=== PATIENT | female | born 1965 | race Caucasian/White ===

== ENCOUNTER 2020-08-01 02:02 | Outpatient (CLI) | payer MEDICAID, SELFPAY ==
[2020-08-02 15:18] LABS: COVID-19 RT-PCR UVMMC Result Negative (Negative)
== END 2020-08-01 02:03 | disposition home or self-care (01) ==
LOC: LBO 02:02
PROVIDERS: PCP Internal Medicine; Visit Provider Surgery
DX: Z20.822 Contact with and (suspected) exposure to COVID-19 (principal); Z01.818 Encounter for other preprocedural examination
CPT/HCPCS: U0003

== ENCOUNTER 2020-08-04 10:04 | Day surgery (SDC) | payer MEDICAID, SELFPAY ==
--- NOTE | 2020-08-04 08:11 | W.COLOREPORT ---
Date of service: 08/04/20 Time of Service: 08:11 Colonoscopy Report Date of procedure: 08/04/20 Pre-op diagnosis general: crc screen Post-op diagnosis procedure note: other (normal ) Prep: Miralax/Dulcolax Retraction Time: 10 mins Procedure Description: After informed consent was obtained the patient was taken to the procedure room and placed in a left decubitous position. Monitors were applied and a time out was done. The patients name, date of , procedure, allergies to medications and metal in their body was reviewed. The patient was then sedated. Once sedated and comfortable a rectal exam was done. External exam: small hemorrhoidal tags . Internal exam revealed a normal sphincter tone and no palpable masses. The scope was then introduced and retrofelexed. Few small hypertrophied papilla, no internal hemorrhoids were identified. The scope was then advanced to the cecum without difficulty. The TI and appendiceal orifice were identified. The prep was good. The scope was then slowly retracted over 10 minutes back into the rectum. There are no polyps, AVMs, or diverticula visualized today. Mucosa appears pink and healthy. She does have a somewhat redundant colon with poor tone. The scope was removed and the patient was woken up and taken back to Same day surgery in stable condition. The patient tolerated the procedure well and there were no immediate complications. -EGD and colonoscopy were essentially normal exams. They do not explain the patient's degree of anemia. Follow up: The patient should follow up in 10 years unless they develop changes in bowel habits or other new gastrointestinal complaints.
--- NOTE | 2020-08-04 08:12 | PDOC.DSDIS_ITS ---
Discharge Plan Disposition Patient Disposition: HOME Condition: Good Discharge Details Reason For Visit: stomach/colon scope Attending Provider: Alondra Stockton Primary Care Provider: Chasity Clark Home Meds and New Rx's Prescriptions: New pantoprazole [Protonix] 40 mg tablet,delayed release (DR/EC) 40 mg PO DAILY Qty: 90 RF: 4 Continued atenolol 50 mg tablet 75 mg PO DAILY RF: 0 losartan 50 mg tablet 50 mg PO DAILY RF: 0 atorvastatin 40 mg tablet 40 mg PO DAILY RF: 0 metformin 500 mg tablet 500 mg PO BID RF: 0 gemfibrozil [Lopid] 600 mg tablet 600 mg PO BID RF: 0 pregabalin [Lyrica] 200 mg capsule 200 mg PO BID RF: 0 zolpidem [Ambien] 10 mg tablet 10 mg PO QHS PRNRF: 0 ropinirole [Requip] 5 mg tablet 5 mg PO QHS RF: 0 Mirena 20 mcg/24 hours (6 yrs) 52 mg intrauterine device 1 device intrauterine ONCE RF: 0 Discontinued omeprazole 40 mg capsule,delayed release(DR/EC) 40 mg PO DAILY RF: 0 aspirin 325 mg tablet 325 mg PO DAILY RF: 0 polyethylene glycol 3350 17 gram/dose powder 238 g PO ONCE Qty: 238 RF: 0 bisacodyl [Dulcolax (bisacodyl)] 5 mg tablet,delayed release (DR/EC) 5 mg PO ONCE Qty: 4 RF: 0 Discharge Instructions Additional Instructions: Findings:EGD: very small hiatal hernia. CE- normal *Does not explain pt degree of anemia. recommend: Pill Cam at [facility] [place] to eval small bowel for ectasia. Consider BMB &/or work-up for thalasemia. -stop ASA/NSAID's. ok to use tylenol -Avoid alcohol or tobacco products -Change PPI to protonix. Rx placed. Continue with lifestyle modifications: no alcohol, tobacco products, Aspirin or NSAID's (ibuprofen, Motrin, Naprosyn, aleve, etc). Try to limit: soda pop/any carbonated beverages, caffeine (including tea & chocolate), and acidic foods, (tomatoes, citrus, onions, peppermints) spicy foods. Do not lie down for 30 minutes after eating, and do not eat 2 hours prior to bedtime. Avoid wearing tight fitting clothing/ belts Follow up: Dr. Clark in 2-3wks Please call if you develop: fevers >101.5 Nausea or Vomiting Abdominal pain that is not transient DAY SURGERY UNIT POST COLONOSCOPY INSTRUCTIONS 1. Because there will be medication in your system for the next 24 hours, you may feel a little sleepy. Your coordination will be affected. Therefore: a. Do not drive or operate dangerous equipment for 24 hours. b. Do not drink alcohol beverages for 24 hours (not even beer). c. Plan to go home and rest for the day. 2. Generally there are no restrictions on your activity after a day or so has gone by, but you may feel a bit fatigued for a few days. 3 After you arrive home you may have a light meal and return to a normal diet as you can tolerate it without feeling sick to your stomach. 4. After surgery, you may feel pain or discomfort. This should be only transient, but if it persists please contact your doctor. 5. If there are any questions regarding the findings of your procedure, please feel free to contact your doctor. 6. If you are unable to contact your doctor with a problem, contact the hospital at [phone]. 7. Continue all your regular medications unless directed otherwise. I understand the above instructions and have no questions. Signature of Patient or Responsible Adult Escort Date/Time Name of Responsible Adult Escort Signature of Nurse Date/Time Activity:: no lifting over 20#'s or strenuous activity x 24 hrs Diet:: small light meals x 24 hrs Discharge Orders Discharge Orders: Discharge Order (Routine); Ordered 08/04/20 Ordered By: Alondra Stockton DS: Diagnosis Discharge Diagnosis (1) Low plasma total homocysteine: Status: Acute (2) High serum haptoglobin: Status: Acute (3) Chronic iron deficiency anemia: Status: Acute (4) Diabetes: Status: Acute (5) Hyperlipidemia: Status: Acute (6) Hypertension: Status: Inactive (7) Low hemoglobin and low hematocrit: Status: Inactive (8) Necrobiosis lipoidica: Status: Acute (9) Smoker: Status: Acute (10) Homocysteine level above reference range: Status: Acute (11) Adult BMI 31.0-31.9 kg/sq m: Status: Acute
[2020-08-04 10:14] VITALS: BP 135/78; PULSE 68; RESP 16; TEMP 36.6; O2SAT 100
[2020-08-04 10:40] LABS: Abs Immature Grans 0.08 10^3/uL (0.0-0.06); Absolute Basophil Count 0.06 10^3/uL (0.0-0.2); Absolute Eosinophil Count 0.42 10^3/uL (0.0-0.7); Absolute Lymphocyte Count 1.24 10^3/uL (1.2-3.4); Absolute Monocyte Count 0.46 10^3/uL (0.1-0.8); Absolute Neutrophil Count 5.62 10^3/uL (1.2-6.7); Basophils % 0.8; Eosinophils % 5.3; HCT 33.1 % (36.0-46.0); HGB 10.6 g/dL (11.2-15.7); Lymphocytes % 15.7; MCH 26.9 pg (27.0-33.0); Monocytes % 5.8; Neutrophils % 71.4; Nucleated RBC 0 %; RBC 3.94 10^6/uL (3.93-5.22); RDW 24.5 % (11.7-14.6); RDW-SD 73.8 fL; WBC 7.88 10^3/uL (4.4-10.8)
[2020-08-04] MEDS: Lactated Ringers 1,000 ML 100 ML IV (10:49)
[2020-08-04 10:52] LABS: Prothrombin Time 10.2 sec (9.3-11.0)
[2020-08-04 10:56] LABS: Iron 66 ug/dL (50-170); Total Iron Binding Capacity 455 ug/dL (250-450); Transferrin Sat 15 % (15-50)
[2020-08-04 11:08] LABS: Anisocytosis 2+; Diff Comment Diff Reviewed; Hypochromasia 1+; Polychromasia Present
[2020-08-04 11:09] LABS: Poikilocytes 1+
--- NOTE | 2020-08-04 11:10 | STOM_PTH ---
PATIENT: Brooks Castorena LOC: [facility] U#:[id number] AGE/SX: 54/F ROOM: RE08/04/[address]: Alondra Stockton : 1965 BED: DIS: 08/04/2020 SPEC #: [id number] RECD: 08/04/20 12:50 STATUS: KWESI RE #: [id number] NORMA: 08/04/20 11:[address]: Alondra Stockton DEPT: Surgical Specimen RECD BY: Nora Aguilar ENTERED: 08/04/20 12:51 SP TYPE: STOMACH OTHR DR: Chasity Clark Tissues: 1 - BIOPSY BOWEL 2 - STOMACH BIOPSY 3 - STOMACH BIOPSY 4 - ESOPHAGUS BIOPSY 5 - ESOPHAGUS BIOPSY Procedures: GROSS AND MICRO LEVEL 4 Comments: [id number]
[2020-08-04 11:14] LABS: ALT 26 U/L (14-59); AST 19 U/L (15-37); Albumin 4.6 g/dL (3.4-5.0); Alkaline Phosphatase 83 U/L (46-116); Anion Gap 8.6 mmol/L (3-11); BUN 8 mg/dL (7-18); Bilirubin, Total 0.3 mg/dL (0.2-1.0); CO2 24.4 mmol/L (21.0-32.0); CREATININE 0.8 mg/dL (0.55-1.02); Calcium 9.4 mg/dL (8.5-10.1); Chloride 95 mmol/L (98-107); Folate 19.1 ng/mL (8.6-20.0); Glucose 148 mg/dL (74-106); Potassium 4.4 mmol/L (3.5-5.1); Sodium 128 mmol/L (136-145); Total Protein 7.7 g/dL (6.4-8.2); Vitamin B12 267 pg/mL (193-986)
[2020-08-04 11:15] LABS: Platelet Count 324 10^3/uL (130-400)
[2020-08-04 11:56] VITALS: BP 138/71; PULSE 71; RESP 16; TEMP 36.4; O2SAT 100
--- NOTE | 2020-08-04 12:08 | W.PM.ENDDOP ---
Date of service: 08/04/20 Time of Service: 12:08 Endoscopy Report DATE OF PROCEDURE: 08/04/20 PRE-OP DIAGNOSIS: refractory/recurring iron defn anemia/gerd s/s. POST-OP DIAGNOSIS: other (mild gatropathy/very small hiatal hernia ) PROCEDURE: egd w/ bx SURGEON: Alondra Stockton ANESTHESIA: GETA ESTIMATED BLOOD LOSS: 1 PATHOLOGY: other COMPLICATIONS: None DISPOSITION: same day PROCEDURE DESCRIPTION: After informed consent was obtained the patient was take to the procedure room and placed in a supine position. Monitors were applied and a time out was done. The patients name, date of , procedure type, allergies to medications and metal in their body was reviewed. A bite block was placed and the patient was sedated. Once sedated and comfortable the gastroscope was advanced through the oropharynx which was grossly normal into the esophagus. The proximal and mid-esophagus were nl. In the distal esophagus there was mild irregularity noted. There are no esophageal erosions varices or diverticula or strictures apparent. There is definitely some irregularity of the Z-line. Biopsies were taken to rule out Saavedra's. The scope was advanced into the stomach and through the pylorus into the 3rd portion of the duodenum. The duodenum was noted to be nl . Biopsies were done. All specimens are retrieved and no bleeding is noted. The scope was retracted back into the stomach and biopsies were done to rule out H. pylori. There were no ulcers or gastritis.. There is some mild irregularity to the mucosa of the dependent portion of the stomach, and there could be some gastropathy here. But again there is no erythema or edema. The scope was retroflexed. The cardia and fundus were noted to be normal. There very small a hiatal hernia noted. The scope was retracted back into the esophagus and biopsies were done of the GE junction to rule out Saavedra's. The GE junction was at 40 cm-at the lips. The scope was removed and the patient was woken up and taken back to [facility] in stable condition. Follow up: We will send a letter in 3 to 4 weeks with the results of the biopsies.
== END 2020-08-04 12:25 | disposition home or self-care (01) ==
PROVIDERS: PCP Internal Medicine; Visit Provider Surgery
PROC: (CPT 43239; principal; 2020-08-04 10:30)
DX: D50.9 Iron deficiency anemia, unspecified (principal); K21.9 Gastro-esophageal reflux disease without esophagitis; K31.89 Other diseases of stomach and duodenum; K44.9 Diaphragmatic hernia without obstruction or gangrene
CPT/HCPCS: 43239; 36415; 80053; 81025; 88305; 82607; 82746; 83540; 83550; 85025; 85610; J2001

== ENCOUNTER 2024-11-02 03:48 | Outpatient (CLI) | payer BC, SELFPAY ==
[2024-11-02 08:19] LABS: Abs Immature Grans 0.04 10^3/uL (0.0-0.06); Absolute Basophil Count 0.04 10^3/uL (0.0-0.2); Absolute Eosinophil Count 0.25 10^3/uL (0.0-0.7); Absolute Lymphocyte Count 0.95 10^3/uL (1.2-3.4); Absolute Monocyte Count 0.43 10^3/uL (0.1-0.8); Absolute Neutrophil Count 3.61 10^3/uL (1.2-6.7); Basophils % 0.8 %; Eosinophils % 4.7 %; HCT 29.5 % (36.0-46.0); HGB 8.9 g/dL (11.2-15.7); Immature Grans % 0.8 %; Lymphocytes % 17.9 %; MCH 23.5 pg (27.0-33.0); MCHC 30.2 % (32.0-36.0); MCV 78 fL (80-95); MPV 9.2 fL (8.0-11.0); Monocytes % 8.1 %; Neutrophils % 67.7 %; Platelet Count 404 10^3/uL (130-400); RBC 3.78 10^6/uL (3.93-5.22); RDW 20.4 % (11.7-14.6); RDW-SD 57.4 fL; WBC 5.32 10^3/uL (4.4-10.8)
[2024-11-02 08:31] LABS: Anisocytosis 2+; Diff Comment Diff Reviewed
[2024-11-02 08:32] LABS: Hypochromasia 2+; Poikilocytes 2+
[2024-11-02 08:51] LABS: ALT 13 U/L (14-59); AST 13 U/L (15-37); Albumin 3.3 g/dL (3.4-5.0); Alkaline Phosphatase 90 U/L (46-116); BUN 17 mg/dL (7-18); Bilirubin, Total 0.2 mg/dL (0.2-1.0); CREATININE 0.6 mg/dL (0.55-1.02); Chloride 105 mmol/L (98-107); Estimated GFR 104.63 (mL/min/1.73m2); FREE T4 1.06 ng/dL (0.76-1.46); Glucose 157 mg/dL (74-106); Magnesium 1.3 mg/dL (1.8-2.4); Potassium 4.7 mmol/L (3.5-5.1); Sodium 136 mmol/L (136-145); TSH 2.03 uIU/mL (0.36-3.74); Total Protein 6.3 g/dL (6.4-8.2)
== END 2024-11-02 03:49 | disposition home or self-care (01) ==
PROVIDERS: PCP Nurse Practitioner Family; Visit Provider Internal Medicine Medical Oncology
DX: C34.11 Malignant neoplasm of upper lobe, right bronchus or lung (principal); C78.7 Secondary malignant neoplasm of liver and intrahepatic bile duct; D64.9 Anemia, unspecified
CPT/HCPCS: 36415; 80053; 86850; 86900; 86901; 83735; 84439; 84443; 85025

== ENCOUNTER 2024-11-16 01:58 | Outpatient (RCR) | payer BC, SELFPAY ==
[2024-11-09 09:00] LABS: Abs Immature Grans 0.02 10^3/uL (0.0-0.06); Absolute Basophil Count 0.04 10^3/uL (0.0-0.2); Absolute Eosinophil Count 0.08 10^3/uL (0.0-0.7); Absolute Monocyte Count 0.05 10^3/uL (0.1-0.8); Absolute Neutrophil Count 1.37 10^3/uL (1.2-6.7); Basophils % 1.9 %; Eosinophils % 3.9 %; HCT 27.3 % (36.0-46.0); HGB 8.2 g/dL (11.2-15.7); Lymphocytes % 24.3 %; MCH 23.4 pg (27.0-33.0); MCV 78 fL (80-95); MPV 10.1 fL (8.0-11.0); Monocytes % 2.4 %; Neutrophils % 66.5 %; RDW 19.8 % (11.7-14.6); RDW-SD 56.1 fL; WBC 2.06 10^3/uL (4.4-10.8)
[2024-11-09 09:41] LABS: Platelet Count 190 10^3/uL (130-400)
[2024-11-09 09:42] LABS: Diff Comment Agrees w/ Instrument; Hypochromasia 2+; Poikilocytes 2+; Polychromasia Present
[2024-11-09 10:01] LABS: Ferritin 107 ng/mL (8-252)
[2024-11-09 10:39] LABS: ALT 15 U/L (14-59); AST 13 U/L (15-37); Alkaline Phosphatase 83 U/L (46-116); Anion Gap 12.5 mmol/L (3-11); BUN 7 mg/dL (7-18); Bilirubin, Total 0.2 mg/dL (0.2-1.0); CO2 22.5 mmol/L (21.0-32.0); CREATININE 0.5 mg/dL (0.55-1.02); Calcium 8.9 mg/dL (8.5-10.1); Chloride 105 mmol/L (98-107); Estimated GFR 109.33 (mL/min/1.73m2); Glucose 190 mg/dL (74-106); Potassium 4.9 mmol/L (3.5-5.1); Sodium 140 mmol/L (136-145)
[2024-11-16 09:36] LABS: Absolute Basophil Count 0.02 10^3/uL (0.0-0.2); Absolute Eosinophil Count 0.09 10^3/uL (0.0-0.7); Absolute Lymphocyte Count 0.59 10^3/uL (1.2-3.4); Absolute Monocyte Count 0.12 10^3/uL (0.1-0.8); Basophils % 1.6 %; Eosinophils % 7.1 %; HCT 30.7 % (36.0-46.0); HGB 9.2 g/dL (11.2-15.7); Lymphocytes % 46.5 %; MCH 23.7 pg (27.0-33.0); MCV 79 fL (80-95); MPV 10.5 fL (8.0-11.0); Monocytes % 9.4 %; Neutrophils % 35.4 %; RBC 3.88 10^6/uL (3.93-5.22); RDW 21.9 % (11.7-14.6)
[2024-11-16] MEDS: Normal Saline Flush 5 ML SYR IVP (09:50)
[2024-11-16 10:46] LABS: Platelet Count 188 10^3/uL (130-400); WBC 1.27 10^3/uL (4.4-10.8)
[2024-11-16 10:47] LABS: Absolute Neutrophil Count 0.45 10^3/uL (1.2-6.7); Anisocytosis 2+; Diff Comment Agrees w/ Instrument
[2024-11-16 10:48] LABS: Poikilocytes 2+
[2024-11-16 12:39] LABS: ALT 18 U/L (14-59); AST 12 U/L (15-37); Albumin 3.5 g/dL (3.4-5.0); Alkaline Phosphatase 92 U/L (46-116); Anion Gap 11.3 mmol/L (3-11); BUN 12 mg/dL (7-18); Bilirubin, Total 0.2 mg/dL (0.2-1.0); CO2 22.7 mmol/L (21.0-32.0); CREATININE 0.5 mg/dL (0.55-1.02); Calcium 9.1 mg/dL (8.5-10.1); Chloride 106 mmol/L (98-107); Estimated GFR 109.33 (mL/min/1.73m2); Glucose 167 mg/dL (74-106); Magnesium 1.1 mg/dL (1.8-2.4); Potassium 4.3 mmol/L (3.5-5.1); Sodium 140 mmol/L (136-145); Total Protein 6.6 g/dL (6.4-8.2)
[2024-11-17 15:33] LABS: Ferritin 51 ng/mL (8-252)
== END 2024-11-20 23:59 | disposition home or self-care (01) ==
LOC: INF 01:58
PROVIDERS: Nurse Practitioner Family; PCP Nurse Practitioner Family; Visit Provider Internal Medicine Medical Oncology
DX: C34.11 Malignant neoplasm of upper lobe, right bronchus or lung (principal); C78.7 Secondary malignant neoplasm of liver and intrahepatic bile duct; D64.9 Anemia, unspecified
CPT/HCPCS: 36415; 80053; 86850; 86900; 86901; 82728; 83735; 85025

== ENCOUNTER 2024-12-13 02:50 | Outpatient (RCR) | payer BC, SELFPAY ==
[2024-11-23] MEDS: Normal Saline Flush 10 ML SYR IVP (08:39)
[2024-11-23 08:40] LABS: Abs Immature Grans 0.04 10^3/uL (0.0-0.06); Absolute Basophil Count 0.04 10^3/uL (0.0-0.2); Absolute Lymphocyte Count 1.04 10^3/uL (1.2-3.4); Absolute Monocyte Count 0.66 10^3/uL (0.1-0.8); Absolute Neutrophil Count 1.34 10^3/uL (1.2-6.7); Basophils % 1.2 %; Eosinophils % 3.1 %; HCT 32.9 % (36.0-46.0); HGB 9.7 g/dL (11.2-15.7); Immature Grans % 1.2 %; Lymphocytes % 32.3 %; MCH 23.5 pg (27.0-33.0); MCHC 29.5 % (32.0-36.0); MCV 80 fL (80-95); MPV 10.2 fL (8.0-11.0); Monocytes % 20.5 %; Neutrophils % 41.7 %; Platelet Count 541 10^3/uL (130-400); RBC 4.12 10^6/uL (3.93-5.22); RDW 22.6 % (11.7-14.6); RDW-SD 62.5 fL; WBC 3.22 10^3/uL (4.4-10.8)
[2024-11-23 09:09] LABS: Anisocytosis 2+; Diff Comment RBC Morph Reviewed; Poikilocytes 2+
[2024-11-23 09:10] LABS: ALT 15 U/L (14-59); AST 12 U/L (15-37); Albumin 3.5 g/dL (3.4-5.0); Alkaline Phosphatase 110 U/L (46-116); BUN 17 mg/dL (7-18); Bilirubin, Total 0.2 mg/dL (0.2-1.0); CREATININE 0.5 mg/dL (0.55-1.02); Calcium 9.2 mg/dL (8.5-10.1); Chloride 105 mmol/L (98-107); Estimated GFR 109.33 (mL/min/1.73m2); FREE T4 0.97 ng/dL (0.76-1.46); Glucose 151 mg/dL (74-106); Magnesium 1.5 mg/dL (1.8-2.4); Potassium 4.8 mmol/L (3.5-5.1); Sodium 140 mmol/L (136-145); TSH 2.98 uIU/mL (0.36-3.74); Total Protein 6.7 g/dL (6.4-8.2)
[2024-12-07 08:32] LABS: HCT 28.2 % (36.0-46.0); HGB 8.5 g/dL (11.2-15.7); MCH 23.9 pg (27.0-33.0); MCHC 30.1 % (32.0-36.0); MCV 79 fL (80-95); MPV 11.3 fL (8.0-11.0); RBC 3.55 10^6/uL (3.93-5.22); RDW 21.9 % (11.7-14.6); RDW-SD 59.4 fL
[2024-12-07 09:57] LABS: Absolute Lymphocyte Count 0.88 10^3/uL (1.2-3.4); Absolute Monocyte Count 0.07 10^3/uL (0.1-0.8); Absolute Neutrophil Count 0.59 10^3/uL (1.2-6.7); Platelet Count 68 10^3/uL (130-400)
[2024-12-07 09:58] LABS: Other Cells % 3
[2024-12-07 09:59] LABS: WBC 1.69 10^3/uL (4.4-10.8)
[2024-12-07 10:00] LABS: Diff Comment Manual Differential
[2024-12-07 10:01] LABS: Poikilocytes 2+
[2024-12-13] MEDS: Normal Saline Flush 10 ML SYR IVP (08:49)
[2024-12-13 08:56] LABS: Abs Immature Grans 0.06 10^3/uL (0.0-0.06); Absolute Basophil Count 0.02 10^3/uL (0.0-0.2); Absolute Eosinophil Count 0.07 10^3/uL (0.0-0.7); Absolute Lymphocyte Count 0.96 10^3/uL (1.2-3.4); Absolute Monocyte Count 0.42 10^3/uL (0.1-0.8); Eosinophils % 3.5 %; HCT 31.1 % (36.0-46.0); HGB 9.4 g/dL (11.2-15.7); Lymphocytes % 47.8 %; MCH 24.5 pg (27.0-33.0); MCHC 30.2 % (32.0-36.0); MCV 81 fL (80-95); MPV 10.6 fL (8.0-11.0); Monocytes % 20.9 %; Neutrophils % 23.8 %; Platelet Count 343 10^3/uL (130-400); RBC 3.84 10^6/uL (3.93-5.22); RDW 24.3 % (11.7-14.6); RDW-SD 67.8 fL; WBC 2.01 10^3/uL (4.4-10.8)
[2024-12-13 09:19] LABS: ALT 21 U/L (14-59); AST 12 U/L (15-37); Albumin 3.6 g/dL (3.4-5.0); Alkaline Phosphatase 108 U/L (46-116); Anion Gap 9.5 mmol/L (3-11); BUN 17 mg/dL (7-18); Bilirubin, Total 0.2 mg/dL (0.2-1.0); CO2 24.5 mmol/L (21.0-32.0); CREATININE 0.6 mg/dL (0.55-1.02); Chloride 103 mmol/L (98-107); Estimated GFR 104.63 (mL/min/1.73m2); FREE T4 0.84 ng/dL (0.76-1.46); Glucose 164 mg/dL (74-106); Magnesium 1.8 mg/dL (1.8-2.4); Potassium 5.1 mmol/L (3.5-5.1); Sodium 137 mmol/L (136-145); TSH 1.93 uIU/mL (0.36-3.74)
[2024-12-13 09:28] LABS: Anisocytosis 2+; Diff Comment RBC Morph Reviewed; Poikilocytes 2+
[2024-12-13 09:29] LABS: Absolute Neutrophil Count 0.48 10^3/uL (1.2-6.7)
== END 2024-12-20 23:59 | disposition home or self-care (01) ==
LOC: INF 02:50
PROVIDERS: PCP Nurse Practitioner Family; Visit Provider Internal Medicine Medical Oncology
DX: C34.11 Malignant neoplasm of upper lobe, right bronchus or lung (principal); C78.7 Secondary malignant neoplasm of liver and intrahepatic bile duct; D64.9 Anemia, unspecified
CPT/HCPCS: 36415; 80053; 86850; 86900; 86901; 83735; 84439; 84443; 85025

== ENCOUNTER 2025-01-10 01:44 | Outpatient (CLI) | payer BC, SELFPAY ==
[2025-01-10 08:38] LABS: Abs Immature Grans 0.02 10^3/uL (0.0-0.06); HCT 31.5 % (36.0-46.0); HGB 10.1 g/dL (11.2-15.7); Immature Grans % 0.4 %; MCH 26.3 pg (27.0-33.0); MCHC 32.1 % (32.0-36.0); MCV 82 fL (80-95); MPV 9.8 fL (8.0-11.0); Platelet Count 253 10^3/uL (130-400); RBC 3.84 10^6/uL (3.93-5.22); RDW 24.5 % (11.7-14.6); RDW-SD 73.1 fL; WBC 4.77 10^3/uL (4.4-10.8)
[2025-01-10 09:10] LABS: Anisocytosis 1+
[2025-01-10 09:17] LABS: ALT 19 U/L (14-59); AST 20 U/L (15-37); Albumin 3.6 g/dL (3.4-5.0); Alkaline Phosphatase 108 U/L (46-116); Anion Gap 8.6 mmol/L (3-11); BUN 9 mg/dL (7-18); Bilirubin, Total 0.2 mg/dL (0.2-1.0); CO2 26.4 mmol/L (21.0-32.0); Calcium 9.2 mg/dL (8.5-10.1); Chloride 98 mmol/L (98-107); Estimated GFR 109.33 (mL/min/1.73m2); Glucose 148 mg/dL (74-106); Magnesium 1.6 mg/dL (1.8-2.4); Potassium 5.1 mmol/L (3.5-5.1); Sodium 133 mmol/L (136-145); TSH 1.12 uIU/mL (0.36-3.74); Total Protein 6.8 g/dL (6.4-8.2)
== END 2025-01-10 01:45 | disposition home or self-care (01) ==
LOC: LBO 01:44
PROVIDERS: PCP Nurse Practitioner Family; Visit Provider Internal Medicine Medical Oncology
DX: C34.11 Malignant neoplasm of upper lobe, right bronchus or lung (principal); C78.7 Secondary malignant neoplasm of liver and intrahepatic bile duct; D64.9 Anemia, unspecified
CPT/HCPCS: 36415; 80053; 86850; 86900; 86901; 83735; 84439; 84443; 85025

== ENCOUNTER 2025-01-11 02:41 | Outpatient (RCR) | payer BC, SELFPAY ==
[2024-12-21 09:09] LABS: Abs Immature Grans 0.09 10^3/uL (0.0-0.06); HCT 29.8 % (36.0-46.0); HGB 9.3 g/dL (11.2-15.7); Immature Grans % 1.4 %; MCH 25.4 pg (27.0-33.0); MCHC 31.2 % (32.0-36.0); MCV 81 fL (80-95); MPV 10.1 fL (8.0-11.0); Platelet Count 321 10^3/uL (130-400); RBC 3.66 10^6/uL (3.93-5.22); RDW 24.0 % (11.7-14.6); RDW-SD 70.6 fL; WBC 6.23 10^3/uL (4.4-10.8)
[2024-12-21] MEDS: Normal Saline Flush 10 ML SYR IVP (09:24)
[2024-12-21 09:32] LABS: ALT 18 U/L (14-59); AST 13 U/L (15-37); Albumin 3.4 g/dL (3.4-5.0); Alkaline Phosphatase 101 U/L (46-116); Anion Gap 9.3 mmol/L (3-11); BUN 12 mg/dL (7-18); Bilirubin, Total 0.2 mg/dL (0.2-1.0); CO2 24.7 mmol/L (21.0-32.0); Calcium 8.8 mg/dL (8.5-10.1); Chloride 101 mmol/L (98-107); Estimated GFR 115.37 (mL/min/1.73m2); Glucose 163 mg/dL (74-106); Magnesium 1.6 mg/dL (1.8-2.4); Potassium 4.4 mmol/L (3.5-5.1); Sodium 135 mmol/L (136-145); TSH 1.63 uIU/mL (0.36-3.74); Total Protein 6.6 g/dL (6.4-8.2)
== END 2025-01-20 23:59 | disposition home or self-care (01) ==
LOC: INF 02:41
PROVIDERS: PCP Nurse Practitioner Family; Visit Provider Internal Medicine Medical Oncology
DX: C34.11 Malignant neoplasm of upper lobe, right bronchus or lung (principal); C78.7 Secondary malignant neoplasm of liver and intrahepatic bile duct
CPT/HCPCS: 36415; 80053; 83735; 84439; 84443; 85025

== ENCOUNTER 2025-01-31 04:41 | Outpatient (CLI) | payer BC, SELFPAY ==
[2025-01-31 08:52] LABS: Abs Immature Grans 0.01 10^3/uL (0.0-0.06); HCT 28.7 % (36.0-46.0); HGB 9.3 g/dL (11.2-15.7); Immature Grans % 0.3 %; MCH 27.8 pg (27.0-33.0); MCHC 32.4 % (32.0-36.0); MCV 86 fL (80-95); MPV 10.1 fL (8.0-11.0); Platelet Count 176 10^3/uL (130-400); RBC 3.34 10^6/uL (3.93-5.22); RDW 24.5 % (11.7-14.6); RDW-SD 77.5 fL; WBC 4.00 10^3/uL (4.4-10.8)
[2025-01-31 09:15] LABS: ALT 19 U/L (14-59); AST 18 U/L (15-37); Albumin 3.6 g/dL (3.4-5.0); Alkaline Phosphatase 112 U/L (46-116); Anion Gap 6.8 mmol/L (3-11); BUN 16 mg/dL (7-18); Bilirubin, Total 0.3 mg/dL (0.2-1.0); CO2 27.2 mmol/L (21.0-32.0); Calcium 9.2 mg/dL (8.5-10.1); Chloride 100 mmol/L (98-107); Estimated GFR 100.81 (mL/min/1.73m2); Glucose 175 mg/dL (74-106); Magnesium 1.7 mg/dL (1.8-2.4); Potassium 4.4 mmol/L (3.5-5.1); Sodium 134 mmol/L (136-145); TSH 0.68 uIU/mL (0.36-3.74); Total Protein 6.9 g/dL (6.4-8.2)
[2025-01-31 09:42] LABS: Anisocytosis 2+; Microcytosis 1+; Ovalocytes 2+; Poikilocytes 1+
== END 2025-01-31 04:42 | disposition home or self-care (01) ==
LOC: LBO 04:41
PROVIDERS: PCP Nurse Practitioner Family; Visit Provider Internal Medicine Medical Oncology
DX: C34.11 Malignant neoplasm of upper lobe, right bronchus or lung (principal); C78.7 Secondary malignant neoplasm of liver and intrahepatic bile duct; D64.9 Anemia, unspecified
CPT/HCPCS: 36415; 80053; 86850; 86900; 86901; 83735; 84439; 84443; 85025

== ENCOUNTER 2025-02-23 14:57 | Outpatient (CLI) | payer BC, SELFPAY ==
[2025-02-23 09:14] LABS: Abs Immature Grans 0.05 10^3/uL (0.0-0.06); HCT 32.4 % (36.0-46.0); HGB 10.3 g/dL (11.2-15.7); Immature Grans % 1.0 %; MCH 27.5 pg (27.0-33.0); MCHC 31.8 % (32.0-36.0); MCV 87 fL (80-95); MPV 10.1 fL (8.0-11.0); Platelet Count 279 10^3/uL (130-400); RBC 3.74 10^6/uL (3.93-5.22); RDW 19.4 % (11.7-14.6); RDW-SD 62.0 fL; WBC 5.12 10^3/uL (4.4-10.8)
[2025-02-23 09:38] LABS: ALT 18 U/L (14-59); AST 18 U/L (15-37); Albumin 3.6 g/dL (3.4-5.0); Alkaline Phosphatase 115 U/L (46-116); Anion Gap 5.7 mmol/L (3-11); BUN 15 mg/dL (7-18); Bilirubin, Total 0.2 mg/dL (0.2-1.0); CO2 28.3 mmol/L (21.0-32.0); Calcium 9.8 mg/dL (8.5-10.1); Chloride 101 mmol/L (98-107); Estimated GFR 109.33 (mL/min/1.73m2); Glucose 188 mg/dL (74-106); Magnesium 1.7 mg/dL (1.8-2.4); Potassium 4.7 mmol/L (3.5-5.1); Sodium 135 mmol/L (136-145); TSH 0.10 uIU/mL (0.36-3.74); Total Protein 7.1 g/dL (6.4-8.2)
== END 2025-02-23 14:58 | disposition home or self-care (01) ==
LOC: LBO 14:57
PROVIDERS: PCP Nurse Practitioner Family; Visit Provider Internal Medicine Medical Oncology
DX: C34.11 Malignant neoplasm of upper lobe, right bronchus or lung (principal); C78.7 Secondary malignant neoplasm of liver and intrahepatic bile duct; D64.9 Anemia, unspecified
CPT/HCPCS: 36415; 80053; 86850; 86900; 86901; 83735; 84439; 84443; 85025

== ENCOUNTER 2025-03-15 00:50 | Outpatient (CLI) | payer BC, SELFPAY ==
[2025-03-15 08:02] LABS: Abs Immature Grans 0.11 10^3/uL (0.0-0.06); HCT 29.8 % (36.0-46.0); HGB 9.4 g/dL (11.2-15.7); Immature Grans % 1.7 %; MCH 27.0 pg (27.0-33.0); MCHC 31.5 % (32.0-36.0); MCV 86 fL (80-95); MPV 10.2 fL (8.0-11.0); Platelet Count 216 10^3/uL (130-400); RBC 3.48 10^6/uL (3.93-5.22); RDW 17.8 % (11.7-14.6); RDW-SD 55.6 fL; WBC 6.47 10^3/uL (4.4-10.8)
[2025-03-15 08:32] LABS: ALT 17 U/L (14-59); AST 15 U/L (15-37); Albumin 3.1 g/dL (3.4-5.0); Alkaline Phosphatase 119 U/L (46-116); BUN 9 mg/dL (7-18); Bilirubin, Total 0.2 mg/dL (0.2-1.0); Calcium 9.2 mg/dL (8.5-10.1); Chloride 106 mmol/L (98-107); Estimated GFR 109.33 (mL/min/1.73m2); Glucose 180 mg/dL (74-106); Magnesium 1.3 mg/dL (1.8-2.4); Potassium 4.3 mmol/L (3.5-5.1); Sodium 141 mmol/L (136-145); TSH 0.76 uIU/mL (0.36-3.74); Total Protein 6.5 g/dL (6.4-8.2)
[2025-03-15 10:29] LABS: CO2 23.6 mmol/L (21.0-32.0)
[2025-03-16 14:37] LABS: Anion Gap 11.4 mmol/L (3-11)
== END 2025-03-15 00:51 | disposition home or self-care (01) ==
LOC: LBO 00:50
PROVIDERS: PCP Nurse Practitioner Family; Visit Provider Internal Medicine Medical Oncology
DX: C34.11 Malignant neoplasm of upper lobe, right bronchus or lung (principal); C78.7 Secondary malignant neoplasm of liver and intrahepatic bile duct; D64.9 Anemia, unspecified
CPT/HCPCS: 36415; 80053; 86850; 86900; 86901; 83735; 84439; 84443; 85025

== ENCOUNTER 2025-04-05 03:24 | Outpatient (CLI) | payer BC, SELFPAY ==
[2025-04-05 08:30] LABS: Abs Immature Grans 0.04 10^3/uL (0.0-0.06); HCT 31.1 % (36.0-46.0); HGB 9.7 g/dL (11.2-15.7); Immature Grans % 0.6 %; MCH 26.9 pg (27.0-33.0); MCHC 31.2 % (32.0-36.0); MCV 86 fL (80-95); MPV 10.0 fL (8.0-11.0); Platelet Count 200 10^3/uL (130-400); RBC 3.60 10^6/uL (3.93-5.22); RDW 17.0 % (11.7-14.6); RDW-SD 54.0 fL; WBC 7.07 10^3/uL (4.4-10.8)
[2025-04-05 09:02] LABS: ALT 13 U/L (14-59); AST 16 U/L (15-37); Albumin 3.3 g/dL (3.4-5.0); Alkaline Phosphatase 118 U/L (46-116); Anion Gap 10.0 mmol/L (3-11); BUN 11 mg/dL (7-18); Bilirubin, Total 0.2 mg/dL (0.2-1.0); CO2 27.0 mmol/L (21.0-32.0); Calcium 9.4 mg/dL (8.5-10.1); Chloride 104 mmol/L (98-107); Estimated GFR 100.81 (mL/min/1.73m2); Glucose 148 mg/dL (74-106); Magnesium 1.8 mg/dL (1.8-2.4); Potassium 5.2 mmol/L (3.5-5.1); Sodium 141 mmol/L (136-145); TSH 8.98 uIU/mL (0.36-3.74); Total Protein 6.7 g/dL (6.4-8.2)
== END 2025-04-05 03:25 | disposition home or self-care (01) ==
LOC: LBO 03:24
PROVIDERS: PCP Nurse Practitioner Family; Visit Provider Internal Medicine Medical Oncology
DX: C34.11 Malignant neoplasm of upper lobe, right bronchus or lung (principal); C78.7 Secondary malignant neoplasm of liver and intrahepatic bile duct; D64.9 Anemia, unspecified
CPT/HCPCS: 36415; 80053; 86850; 86900; 86901; 83735; 84439; 84443; 85025

== ENCOUNTER 2025-04-25 03:48 | Outpatient (CLI) | payer BC, SELFPAY ==
[2025-04-25 08:29] LABS: Abs Immature Grans 0.06 10^3/uL (0.0-0.06); HCT 31.8 % (36.0-46.0); HGB 9.9 g/dL (11.2-15.7); Immature Grans % 0.8 %; MCH 26.7 pg (27.0-33.0); MCHC 31.1 % (32.0-36.0); MCV 86 fL (80-95); MPV 9.4 fL (8.0-11.0); Platelet Count 218 10^3/uL (130-400); RBC 3.71 10^6/uL (3.93-5.22); RDW 16.9 % (11.7-14.6); RDW-SD 53.4 fL; WBC 7.68 10^3/uL (4.4-10.8)
[2025-04-25 08:53] LABS: ALT 17 U/L (14-59); AST 17 U/L (15-37); Albumin 3.4 g/dL (3.4-5.0); Alkaline Phosphatase 114 U/L (46-116); Anion Gap 7.0 mmol/L (3-11); BUN 9 mg/dL (7-18); Bilirubin, Total 0.2 mg/dL (0.2-1.0); CO2 27.0 mmol/L (21.0-32.0); Calcium 9.3 mg/dL (8.5-10.1); Chloride 106 mmol/L (98-107); Glucose 110 mg/dL (74-106); Magnesium 1.7 mg/dL (1.8-2.4); Potassium 4.7 mmol/L (3.5-5.1); Sodium 140 mmol/L (136-145); TSH 50.45 uIU/mL (0.36-3.74); Total Protein 7.2 g/dL (6.4-8.2)
== END 2025-04-25 03:49 | disposition home or self-care (01) ==
LOC: LBO 03:49
PROVIDERS: PCP Nurse Practitioner Family; Visit Provider Internal Medicine Medical Oncology
DX: C34.11 Malignant neoplasm of upper lobe, right bronchus or lung (principal); C78.7 Secondary malignant neoplasm of liver and intrahepatic bile duct; D64.9 Anemia, unspecified
CPT/HCPCS: 36415; 80053; 86850; 86900; 86901; 83735; 84439; 84443; 85025

== ENCOUNTER 2025-05-16 03:59 | Outpatient (CLI) | payer BC, SELFPAY ==
[2025-05-16 09:43] LABS: Abs Immature Grans 0.03 10^3/uL (0.0-0.06); HCT 31.7 % (36.0-46.0); HGB 10.3 g/dL (11.2-15.7); Immature Grans % 0.6 %; MCH 27.0 pg (27.0-33.0); MCHC 32.5 % (32.0-36.0); MCV 83 fL (80-95); MPV 9.4 fL (8.0-11.0); Platelet Count 225 10^3/uL (130-400); RBC 3.81 10^6/uL (3.93-5.22); RDW 17.0 % (11.7-14.6); RDW-SD 51.7 fL; WBC 5.03 10^3/uL (4.4-10.8)
[2025-05-16 10:00] LABS: Magnesium 1.7 mg/dL (1.6-2.6)
[2025-05-16 10:01] LABS: ALT 10 U/L (10-49); AST 20 U/L (<34); Albumin 4.7 g/dL (3.4-5.0); Alkaline Phosphatase 97 U/L (46-116); Anion Gap 1.9 mmol/L (3-11); BUN 11 mg/dL (9-23); Bilirubin, Total 0.30 mg/dL (0.2-1.2); CO2 26.1 mmol/L (20.0-31.0); Calcium 9.4 mg/dL (8.3-10.6); Chloride 107 mmol/L (98-107); Glucose 122 mg/dL (74-106); Potassium 4.5 mmol/L (3.5-5.1); Sodium 135 mmol/L (136-145); Total Protein 7.2 g/dL (5.7-8.2)
[2025-05-16 10:05] LABS: TSH 15.32 uIU/mL (0.55-4.78)
== END 2025-05-16 04:00 | disposition home or self-care (01) ==
LOC: LBO 03:59
PROVIDERS: PCP Nurse Practitioner Family; Visit Provider Internal Medicine Medical Oncology
DX: C34.11 Malignant neoplasm of upper lobe, right bronchus or lung (principal); C78.7 Secondary malignant neoplasm of liver and intrahepatic bile duct
CPT/HCPCS: 36415; 80053; 83735; 84439; 84443; 85025

== ENCOUNTER 2025-06-06 00:42 | Outpatient (CLI) | payer BC, SELFPAY ==
[2025-06-06 10:06] LABS: Abs Immature Grans 0.05 10^3/uL (0.0-0.06); HCT 28.2 % (36.0-46.0); HGB 8.9 g/dL (11.2-15.7); Immature Grans % 0.9 %; MCH 26.6 pg (27.0-33.0); MCHC 31.6 % (32.0-36.0); MCV 84 fL (80-95); MPV 10.3 fL (8.0-11.0); Platelet Count 255 10^3/uL (130-400); RBC 3.35 10^6/uL (3.93-5.22); RDW 16.9 % (11.7-14.6); RDW-SD 51.3 fL; WBC 5.44 10^3/uL (4.4-10.8)
[2025-06-06 10:22] LABS: Magnesium 1.8 mg/dL (1.6-2.6)
[2025-06-06 10:24] LABS: ALT 9 U/L (10-49); AST 18 U/L (<34); Albumin 4.3 g/dL (3.2-5.0); Alkaline Phosphatase 100 U/L (46-116); Anion Gap 4.6 mmol/L (3-11); BUN 10 mg/dL (9-23); Bilirubin, Total 0.2 mg/dL (0.2-1.2); CO2 23.4 mmol/L (20.0-31.0); Calcium 9.1 mg/dL (8.3-10.6); Chloride 107 mmol/L (98-107); Glucose 158 mg/dL (74-106); Potassium 4.6 mmol/L (3.5-5.1); Sodium 135 mmol/L (136-145); Total Protein 6.7 g/dL (5.7-8.2)
[2025-06-06 10:27] LABS: TSH 25.16 uIU/mL (0.55-4.78)
[2025-06-06 10:44] LABS: Anisocytosis 1+; Hypochromasia 1+; Microcytosis 1+
== END 2025-06-06 00:43 | disposition home or self-care (01) ==
LOC: LBO 00:42
PROVIDERS: PCP Nurse Practitioner Family; Visit Provider Internal Medicine Medical Oncology
DX: C34.11 Malignant neoplasm of upper lobe, right bronchus or lung (principal); C78.7 Secondary malignant neoplasm of liver and intrahepatic bile duct
CPT/HCPCS: 36415; 80053; 83735; 84439; 84443; 85025